=== PATIENT | female | born 1995 | race Caucasian/White ===

== ENCOUNTER 2021-02-24 18:00 | Emergency (ER) | payer MEDICAID ==
[~2021-02-24] VITALS: Ht 160 cm; Wt 56.0 kg
[2021-02-24] MEDS ORDERED: VISCOUS LIDOCAINE 2% 15 ML UDC PO STA (18:34)
[2021-02-24] MEDS ORDERED: MAGNESIUM/ALUMINUM HYDROXIDE/SIMETHICONE 30ML UDC PO STA (18:34)
[2021-02-24] MEDS ORDERED: ACETAMINOPHEN 325MG TABLET PO STA (18:34)
[2021-02-24] MEDS ORDERED: SODIUM CHLORIDE 0.9% 1,000 ML IV ONE (18:45)
[2021-02-24 19:26] LABS: BASOPHILS % 0.2 % (0.0-2.0); EOSINOPHILS % 0.2 % (0.0-5.0); HEMATOCRIT. 39.2 % (36.0-48.0); HEMOGLOBIN. 13.2 g/dL (12.0-16.0); LYMPHOCYTES % 10.3 % (20.0-50.0); MEAN CORPUSCULAR HEMOGLOBIN 29.1 pg (28.0-32.0); MEAN CORPUSCULAR VOLUME 86.5 fL (81.0-99.0); MEAN PLATELET VOLUME 8.7 fl (7.4-10.4); MONOCYTES % 5.8 % (2.0-8.0); NEUTROPHILS % 83.5 % (40.0-76.0); PLATELET 242 x1000/uL (130-400); RED BLOOD CELL COUNT 4.54 mill/uL (4.2-5.4); RED CELL DISTRIBUTION WIDTH 12.6 % (11.6-14.6)
[2021-02-24 19:33] LABS: CHLORIDE 110 mEq/L (98-107)
[2021-02-24 19:36] LABS: HCG SCREEN NEGATIVE
[2021-02-24 19:37] LABS: ETHANOL BLOOD < 10 mg/dL
[2021-02-24 21:24] VITALS: BP 121/77
[2021-02-24] MEDS ORDERED: MAG355OR21 MT (21:46)
[2021-02-24] MEDS ORDERED: ACET-2708 MT (21:46)
== END 2021-02-24 21:58 | disposition home or self-care (01) ==
LOC: ER 18:00
DX: R00.2 Palpitations (principal); F41.9 Anxiety disorder, unspecified; Z13.9 Encounter for screening, unspecified
CPT/HCPCS: 36415; 71045; 80053; 80320; 83690; 84484; 84703; 85025; 99284; J7030; G0480

== ENCOUNTER 2021-06-05 14:22 | Emergency (ER) | payer MEDICAID ==
[~2021-06-05] VITALS: Ht 154.9 cm; Wt 48.0 kg
[~2021-06-05 14:22] MED LIST: ACET-2708 MT; MAG355OR21 MT
[2021-06-05 19:15] LABS: CHLORIDE 109 mEq/L (98-107)
[2021-06-05 19:18] LABS: BASOPHILS % 0.3 % (0.0-2.0); EOSINOPHILS % 0.8 % (0.0-5.0); HEMATOCRIT. 40.6 % (36.0-48.0); HEMOGLOBIN. 13.7 g/dL (12.0-16.0); LYMPHOCYTES % 23.8 % (20.0-50.0); MEAN CORPUSCULAR HEMOGLOBIN 29.6 pg (28.0-32.0); MEAN CORPUSCULAR VOLUME 87.4 fL (81.0-99.0); MEAN PLATELET VOLUME 8.5 fl (7.4-10.4); MONOCYTES % 5.9 % (2.0-8.0); NEUTROPHILS % 69.2 % (40.0-76.0); PLATELET 271 x1000/uL (130-400); RED BLOOD CELL COUNT 4.65 mill/uL (4.2-5.4); RED CELL DISTRIBUTION WIDTH 13.9 % (11.6-14.6)
[2021-06-05 19:39] LABS: B-HCG QUANTITATIVE 12706 mIU/mL (<3)
[2021-06-05 22:33] LABS: CLARITY URINE CLEAR (CLEAR); COLOR URINE YELLOW (YELLOW); KETONES URINE 2+ (NEGATIVE); LEUKOCYTE ESTERASE URINE NEGATIVE (NEGATIVE); NITRITE URINE NEGATIVE (NEGATIVE); OCCULT BLOOD URINE NEGATIVE (NEGATIVE); PROTEIN URINE NEGATIVE (NEGATIVE); SPECIFIC GRAVITY URINE 1.033 (1.005-1.030); UROBILINOGEN URINE 0.2 E.U./dL (0.2-1.0)
[2021-06-06] MEDS ORDERED: ACETAMINOPHEN 325MG TABLET PO ONE
[2021-06-06 00:10] VITALS: BP 125/63
== END 2021-06-06 00:12 | disposition home or self-care (01) ==
LOC: ER 14:22
DX: O20.9 Hemorrhage in early pregnancy, unspecified (principal); Z3A.01 Less than 8 weeks gestation of pregnancy
CPT/HCPCS: 36415; 76801; 80053; 81003; 81025; 84702; 85025; 86850; 86900; 99284

== ENCOUNTER 2022-01-03 16:56 | Observation (INO) | payer MEDICAID ==
[~2022-01-03] VITALS: Ht 149.9 cm; Wt 68.0 kg
== END 2022-01-03 20:23 | disposition home or self-care (01) ==
LOC: 8 EST LDRP 16:56
PROVIDERS: ADMIT Obstetrics & Gynecology; ATTEND Obstetrics & Gynecology
DX: O62.9 Abnormality of forces of labor, unspecified (principal); Z3A.35 35 weeks gestation of pregnancy
CPT/HCPCS: 59025; 76805; 76818; G0378; 99281; G0379

== ENCOUNTER 2022-01-24 08:15 | Inpatient (IN) | payer MEDICAID ==
[~2022-01-24] VITALS: Ht 149.9 cm; Wt 71.2 kg
[2022-01-24] MEDS ORDERED: OXYTOCIN 30 UNITS/500ML NS PMX 500 ML IV SCH ×2 (09:15→13:45)
[2022-01-24] MEDS ORDERED: DEXT 5%/LACTATED RINGERS 1,000 ML IV SCH (09:15)
[2022-01-24] MEDS ORDERED: RHO(D) IMMUNE GLOBULIN 300 MCG/SYR IM NR (09:30)
[2022-01-24 09:34] LABS: BASOPHILS % 0.3 % (0.0-2.0); EOSINOPHILS % 0.4 % (0.0-5.0); HEMATOCRIT. 35.2 % (36.0-48.0); HEMOGLOBIN. 11.5 g/dL (12.0-16.0); MEAN CORPUSCULAR HEMOGLOBIN 26.8 pg (28.0-32.0); MEAN CORPUSCULAR VOLUME 81.6 fL (81.0-99.0); MEAN PLATELET VOLUME 9.4 fl (7.4-10.4); MONOCYTES % 8.4 % (2.0-8.0); NEUTROPHILS % 69.9 % (40.0-76.0); PLATELET 192 x1000/uL (130-400); RED BLOOD CELL COUNT 4.31 mill/uL (4.2-5.4); RED CELL DISTRIBUTION WIDTH 15.7 % (11.6-14.6)
[2022-01-24] MEDS ORDERED: MORPHINE SULFATE/PF 1MG/ML 10ML AMP ONE (09:34)
[2022-01-24 09:37] LABS: CLARITY URINE CLEAR (CLEAR); COLOR URINE YELLOW (YELLOW); KETONES URINE TRACE (NEGATIVE); LEUKOCYTE ESTERASE URINE 1+ (NEGATIVE); NITRITE URINE NEGATIVE (NEGATIVE); OCCULT BLOOD URINE NEGATIVE (NEGATIVE); PROTEIN URINE TRACE (NEGATIVE); SPECIFIC GRAVITY URINE 1.026 (1.005-1.030)
[2022-01-24 09:45] LABS: PARTIAL THROMBOPLASTIN TIME 24.6 sec (23.4-31.0); PROTHROMBIN TIME 10.3 sec (9.6-11.0)
[2022-01-24] MEDS ORDERED: ONDANSETRON HCL 4MG/2ML INJ ONE (09:47)
[2022-01-24] MEDS ORDERED: DEXAMETHASONE 4MG/ML 1ML VIAL ONE (09:47)
[2022-01-24] MEDS ORDERED: CEFAZOLIN SODIUM 1000MG/VIAL ONE (09:47)
[2022-01-24] MEDS ORDERED: OXYTOCIN 10 UNITS/ML 1ML ONE (09:47)
[2022-01-24] MEDS ORDERED: KETOROLAC 60MG/2ML VIAL IM ONE (09:47)
[2022-01-24] MEDS ORDERED: EPHEDRINE SULFATE 50MG/ML VIAL ONE (09:48)
[2022-01-24] MEDS ORDERED: PHENYLEPHRINE HCL 10 MG/ML 1ML (IV VIAL) IV ONE (09:48)
[2022-01-24] MEDS ORDERED: LACTATED RINGERS 1,000 ML IV SCH (10:00)
[2022-01-24 10:04] LABS: *AMPHETAMINES SCREEN URINE NEGATIVE (NEGATIVE); *BARBITURATES SCREEN URINE NEGATIVE (NEGATIVE); *BENZODIAZEPINES SCREEN URINE NEGATIVE (NEGATIVE); *COCAINE SCREEN URINE NEGATIVE (NEGATIVE); CANNABINOID URINE SCREEN NEGATIVE (NEGATIVE); METHADONE URINE SCREEN NEGATIVE (NEGATIVE); OPIATES URINE SCREEN NEGATIVE (NEGATIVE); PHENCYCLIDINE URINE SCREEN NEGATIVE (NEGATIVE)
[2022-01-24] MEDS ORDERED: FENTANYL CITRATE/PF 50MCG/ML 2ML VIAL IV PRN (12:45)
[2022-01-24] MEDS ORDERED: KETOROLAC 30MG/ML VIAL IV PRN (12:45)
[2022-01-24] MEDS ORDERED: MORPHINE SULFATE 4 MG/ML CPJ (NOT FOR IM USE) IV PRN (12:45)
[2022-01-24] MEDS ORDERED: NALOXONE HCL 0.4 MG/ML 1ML VIAL IV PRN (12:45)
[2022-01-24 13:15] LABS: HEPATITIS B SURFACE ANTIGEN NEGATIVE
[2022-01-24] MEDS ORDERED: LANOLIN OINT 7GM TUBE TOP PRN (13:45)
[2022-01-24] MEDS ORDERED: RHO(D) IMMUNE GLOBULIN 300 MCG/SYR IM PRN (13:45)
[2022-01-24] MEDS ORDERED: IBUPROFEN 400MG TABLET PO PRN (13:45)
[2022-01-24] MEDS ORDERED: HEMORRHOIDAL SUPP PR PRN (13:45)
[2022-01-24] MEDS ORDERED: ONDANSETRON HCL 4MG/2ML INJ IV PRN (13:45)
[2022-01-24] MEDS ORDERED: BISACODYL 10MG SUPP PR PRN (13:45)
[2022-01-24] MEDS ORDERED: NALOXONE HCL 0.4MG/ML VIAL IV PRN (14:00)
[2022-01-24 15:30] VITALS: BP 115/63
[2022-01-24 16:00] VITALS: BP 120/69
[2022-01-24 17:00] VITALS: BP 99/51
[2022-01-24 20:00] VITALS: BP 119/72
[2022-01-24] MEDS ORDERED: BUTORPHANOL TARTRATE 2 MG/ML VIAL IV PRN (20:30)
[2022-01-24] MEDS ORDERED: DIPHENHYDRAMINE 50MG/ML VIAL IV PRN (20:30)
[2022-01-24] MEDS: DOCUSATE SODIUM 100MG CAPSULE PO SCH (21:00)
[2022-01-24] MEDS ORDERED: DIPHENHYDRAMINE 25MG CAPSULE PO PRN (21:00)
[2022-01-24] MEDS: SIMETHICONE 80MG TABLET CHEW PO SCH (23:11)
[2022-01-24] MEDS: MAGNESIUM/ALUMINUM HYDROXIDE/SIMETHICONE 30ML UDC PO SCH (23:11)
[2022-01-25 04:01] VITALS: BP 103/60
[2022-01-25 06:25] LABS: BASOPHILS % 0.2 % (0.0-2.0); EOSINOPHILS % 0.1 % (0.0-5.0); HEMOGLOBIN. 9.9 g/dL (12.0-16.0); LYMPHOCYTES % 16.4 % (20.0-50.0); MEAN CORPUSCULAR HEMOGLOBIN 27.4 pg (28.0-32.0); MEAN CORPUSCULAR VOLUME 82.6 fL (81.0-99.0); MEAN PLATELET VOLUME 9.9 fl (7.4-10.4); MONOCYTES % 8.7 % (2.0-8.0); NEUTROPHILS % 74.6 % (40.0-76.0); PLATELET 176 x1000/uL (130-400); RED BLOOD CELL COUNT 3.64 mill/uL (4.2-5.4); RED CELL DISTRIBUTION WIDTH 15.7 % (11.6-14.6)
[2022-01-25] MEDS: FERROUS SULFATE 325MG TABLET PO SCH ×2 (07:30→12:30)
[2022-01-25] MEDS: MAGNESIUM/ALUMINUM HYDROXIDE/SIMETHICONE 30ML UDC PO SCH ×3 (07:30→21:41)
[2022-01-25 08:00] VITALS: BP 102/55
[2022-01-25] MEDS: SIMETHICONE 80MG TABLET CHEW PO SCH ×4 (08:00→21:40)
[2022-01-25] MEDS: IBUPROFEN 800MG TABLET PO PRN ×2 (12:08→18:58)
[2022-01-25] MEDS: PRENATAL VIT/FE FUMARATE/FA TABLET PO SCH (12:08)
[2022-01-25 16:00] VITALS: BP 113/61
[2022-01-25 19:30] VITALS: BP 101/56
[2022-01-25] MEDS: DOCUSATE SODIUM 100MG CAPSULE PO SCH (21:41)
[2022-01-25] MEDS: ACETAMINOPHEN WITH CODEINE 300/30MG TABLET PO PRN (21:42)
[2022-01-26 04:00] VITALS: BP 105/63
[2022-01-26] MEDS: IBUPROFEN 800MG TABLET PO PRN ×3 (04:11→21:56)
[2022-01-26 08:00] VITALS: BP 114/77
[2022-01-26] MEDS: MAGNESIUM/ALUMINUM HYDROXIDE/SIMETHICONE 30ML UDC PO SCH ×4 (08:41→21:55)
[2022-01-26] MEDS: PRENATAL VIT/FE FUMARATE/FA TABLET PO SCH (08:41)
[2022-01-26] MEDS: ACETAMINOPHEN WITH CODEINE 300/30MG TABLET PO PRN ×2 (08:42→17:48)
[2022-01-26] MEDS: SIMETHICONE 80MG TABLET CHEW PO SCH ×4 (08:42→21:55)
[2022-01-26] MEDS: FERROUS SULFATE 325MG TABLET PO SCH ×3 (08:42→17:48)
[2022-01-26 16:00] VITALS: BP 100/44
[2022-01-26 19:30] VITALS: BP 110/75
[2022-01-26] MEDS: DOCUSATE SODIUM 100MG CAPSULE PO SCH (21:56)
[2022-01-27 04:00] VITALS: BP 114/71
[2022-01-27] MEDS: IBUPROFEN 800MG TABLET PO PRN (04:15)
[2022-01-27] MEDS ORDERED: IBUP-2030 PO (05:17)
[2022-01-27 08:00] VITALS: BP 109/81
[2022-01-27] MEDS: FERROUS SULFATE 325MG TABLET PO SCH (09:31)
[2022-01-27] MEDS: PRENATAL VIT/FE FUMARATE/FA TABLET PO SCH (09:31)
[2022-01-27] MEDS: MAGNESIUM/ALUMINUM HYDROXIDE/SIMETHICONE 30ML UDC PO SCH (09:32)
[2022-01-27] MEDS: SIMETHICONE 80MG TABLET CHEW PO SCH (09:32)
== END 2022-01-27 12:30 | disposition home or self-care (01) | DRG 540 ==
LOC: 8 EST LDRP 08:15 → OBSVTOIN 08:15 → 8EST 15:25
PROVIDERS: ADMIT Obstetrics & Gynecology; ATTEND Obstetrics & Gynecology
PROC: 10D00Z1 Extraction of Products of Conception, Low, Open Approach (ICD-10-PCS; principal; 2022-01-24)
DX: O32.1XX0 Maternal care for breech presentation, not applicable or unspecified (principal); O99.02 Anemia complicating childbirth; Z20.822 Contact with and (suspected) exposure to COVID-19; Z3A.39 39 weeks gestation of pregnancy; Z37.0 Single live birth
CPT/HCPCS: 36415; 76815; 80305; 81003; 85025; 86592; 86703; 86762; 86850; 86900; 87340; 87426; 88307; 99281; J0690; J1100; J1885; J2274; J2370; J2405; J3490; J7120; A4315; J2590